=== PATIENT | female | born 1970 | race Caucasian/White ===

== ENCOUNTER 2016-10-07 18:50 | Emergency (ER) | payer BC ==
[2016-10-07 19:49] VITALS: BP 121/73
[2016-10-07] MEDS ORDERED: Lidocaine 2% PF * 5 ML VIAL INJ ONE (21:55)
--- NOTE | 2016-10-07 21:55 | UC ---
Laceration HPI - HPI Summary HPI Summary: complaint of laceration on right hand was washing dishes and suffered laceration lots of bleeding and then was controlled hasn't taken anything for pain - History Of Current Complaint Chief Complaint: UCLaceration Stated Complaint: HAND LACERATION Time Seen by Provider: 10/07/16 21:49 Hx Obtained From: Patient Laceration Location: Hand - Allergies/Home Medications Allergies/Adverse Reactions: Allergies Allergy/AdvReac Type Severity Reaction Status Date / Time No Known Allergies Allergy Verified 10/07/16 19:49 Home Medications: Home Medications NK [No Home Medications Reported] 10/07/16 [History Confirmed 10/07/16] PMH/Surg Hx/FS Hx/Imm Hx Previously Healthy: Yes - Surgical History Surgical History: None - Family History Known Family History: Negative: Cardiac Disease, Hypertension, Diabetes - Social History Occupation: Employed Full-time Lives: With Family Alcohol Use: Occasionally Substance Use Type: None Smoking Status (MU): Never Smoked Tobacco Review of Systems Constitutional: Negative Skin: Other - laceration Eyes: Negative ENT: Negative Respiratory: Negative Cardiovascular: Negative Gastrointestinal: Negative Genitourinary: Negative Motor: Negative Neurovascular: Negative Musculoskeletal: Negative Neurological: Negative Psychological: Negative All Other Systems Reviewed And Are Negative: Yes Physical Exam Triage Information Reviewed: Yes Appearance: No Pain Distress, Well-Nourished Vital Signs: Initial Vital Signs Temp 99.6 F 10/07/16 19:46 Pulse 91 10/07/16 19:46 Resp 16 10/07/16 19:46 BP 121/73 10/07/16 19:46 Vital Signs Reviewed: Yes Eyes: Positive: Conjunctiva Clear ENT: Positive: Pharynx normal, TMs normal Neck: Positive: No Lymphadenopathy Respiratory: Positive: Lungs clear, Normal breath sounds, No respiratory distress, No accessory muscle use Cardiovascular: Positive: RRR, No Murmur, Pulses Normal Bowel Sounds: Positive: Present Musculoskeletal Exam: Normal Neurological Exam: Normal Psychological Exam: Normal Skin Exam: Other - rignht hand laceration Laceration Repair - Laceration Repair 1 Description: Linear Laceration Size After Repair: Length (cm) - 3, Width (mm) - 3, Depth (mm) - 2 Modified For Repair: No Anesthesia Used: 2.0% Lido Cleansing Completed Via Routine Prep: Yes Irrigation With Pressure Irrigation Device: Yes Closure Material: Sutures Closure Method: Single Layer Suture Of: Skin Suture Type: Nylon - 6 sutures Laceration Course/Dx - Differential Dx - Laceration/Wound Differental Diagnoses: Laceration Provider Diagnoses: simple laceration Discharge - Discharge Plan Condition: Stable Disposition: HOME Patient Education Materials: Laceration (ED), Care For Your Stitches (ED) Referrals: Rene Mcgill MD [Primary Care Provider] - Additional Instructions: LACERATION What is a Laceration? Laceration is the medical name for a cut. Lacerations may be large or small. Some lacerations need stitches (also called sutures) to close them so they will heal well. Stitches usually need to be placed within 6 hours of injury. There are times when a wound may be determined to be too old for stitches. Stitches are removed when the wound is strong enough to stay closed, which is usually in 10-12 days, depending on where the wound or cut is located. Some stitches dissolve by themselves and do not need to be removed. If you have been given a numbing medicine, there will be some pain when it wears off. The pain from the wound should begin to decrease within one day. Treatment Recommendations: Keep the wound clean and dry for at least the next two (2) days. Keep the dressing clean if at all possible. If you must work in surroundings that will dirty the wound or dressing, wear a protective covering such as a glove. If the wound does get dirty, clean it as soon as you can with mild soap and water using a patting action. Do not rub or scrub vigorously. Then pat it dry completely. If a dressing was placed on the wound, you should put a clean one on at least daily and whenever you clean the wound. You can apply antibiotic ointment such as Bacitracin ointment to the wound each time you change the dressing. Avoid using the injured part as much as possible. If the wound is near a joint , try not to bend the joint too much. Elevate the injured part above your heart whenever possible to relieve throbbing. If you had stitches put in, you should see your healthcare provider in 1 to 2 days to have the wound checked for any signs or symptoms of infection. Some stitches will dissolve by themselves. Others will need to be removed. Make an appointment with your healthcare provider to have the stitches removed on the date instructed. An antibiotic medicine may be prescribed. The medicine should be taken until it is completely gone, even if you are feeling better. If you stop taking the medicine early, the infection may not be completely gone, and the medicine may not work the next time. Call Your Doctor or Return Here IF: Your wound becomes red, warm, swollen or more painful. There are red streaks coming from the wound. You develop a fever or shaking chills. Pus or bad smelling fluid comes out of the wound. You have any other symptoms that worry you.
== END 2016-10-07 22:39 | disposition home or self-care (01) ==
LOC: UCEAST 18:50
DX: S61.411A Laceration without foreign body of right hand, initial encounter (principal); W45.8XXA Other foreign body or object entering through skin, initial encounter; Y93.G1 Activity, food preparation and clean up; Y92.000 Kitchen of unspecified non-institutional (private) residence as the place of occurrence of the external cause; Y99.9 Unspecified external cause status
CPT/HCPCS: 12001; 12002; 99211; G0463

== ENCOUNTER 2016-10-17 08:28 | Emergency (ER) | payer BC ==
[2016-10-17] MEDS ORDERED: BENZOIN COMPOUND TOPICAL ONE (08:34)
[2016-10-17] MEDS ORDERED: Benzoin Compound STICK ONE (08:37)
[2016-10-17] MEDS ORDERED: Benzoin Compound STICK TOPICAL ONE (08:40)
--- NOTE | 2016-10-17 08:40 | UC ---
HPI Wound/Suture Re-check - HPI Summary HPI Summary: right mcp joint suture removal. 5 prolene sitiches placed are to be removed today healing well begining to feel itchy - History Of Current Complaint Hx Obtained From: Patient Onset/Duration: Sudden Onset, Lasting Days - 10, Resolved Severity: Mild <Colleen Rodriguez - Last Filed: 10/17/16 09:10> <Cassie Zamarripa - Last Filed: 10/17/16 09:23> - History Of Current Complaint Chief Complaint: UCLaceration Stated Complaint: SUTURE REMOVAL Time Seen by Provider: 10/17/16 08:32 - Allergies/Home Medications Allergies/Adverse Reactions: Allergies Allergy/AdvReac Type Severity Reaction Status Date / Time No Known Allergies Allergy Verified 10/17/16 08:39 PMH/Surg Hx/FS Hx/Imm Hx Previously Healthy: Yes - Surgical History Surgical History: None - Family History Known Family History: Negative: Cardiac Disease, Hypertension, Diabetes - Social History Occupation: Employed Full-time Lives: With Family Alcohol Use: Occasionally Substance Use Type: None Smoking Status (MU): Never Smoked Tobacco <Colleen Rodriguez - Last Filed: 10/17/16 09:10> Review of Systems Constitutional: Negative Skin: Other - healing well approximated wound right 2nd mcp joint Eyes: Negative ENT: Negative Respiratory: Negative Cardiovascular: Negative Gastrointestinal: Negative Genitourinary: Negative Motor: Negative Neurovascular: Negative Musculoskeletal: Negative Neurological: Negative Psychological: Negative All Other Systems Reviewed And Are Negative: Yes <Colleen Rodriguez - Last Filed: 10/17/16 09:10> Physical Exam Triage Information Reviewed: Yes Appearance: Well-Appearing, No Pain Distress, Well-Nourished Vital Signs Reviewed: Yes Eye Exam: Normal Eyes: Positive: Conjunctiva Clear ENT Exam: Normal ENT: Positive: Normal ENT inspection, Hearing grossly normal. Negative: Nasal congestion, Nasal drainage, Trismus, Muffled/hoarse voice Dental Exam: Normal Neck exam: Normal Neck: Positive: Supple, Nontender, No Lymphadenopathy Respiratory Exam: Normal Respiratory: Positive: Chest non-tender, Lungs clear, Normal breath sounds, No respiratory distress, No accessory muscle use Cardiovascular Exam: Normal Cardiovascular: Positive: RRR, No Murmur, Pulses Normal, Brisk Capillary Refill Abdominal Exam: Normal Musculoskeletal Exam: Normal Musculoskeletal: Positive: Strength Intact, ROM Intact, No Edema Neurological Exam: Normal Neurological: Positive: Alert, Muscle Tone Normal Psychological Exam: Normal Skin Exam: Normal Skin: Positive: Other - well healed wound mcp joint <Colleen Rodriguez - Last Filed: 10/17/16 09:10> Vital Signs: Initial Vital Signs Temp 98.1 F 10/17/16 08:37 Pulse 82 10/17/16 08:37 Resp 16 10/17/16 08:37 BP 95/69 10/17/16 08:37 Pulse Ox 99 10/17/16 08:37 <Cassie Zamarripa - Last Filed: 10/17/16 09:23> Re-Evaluation - Re-Evaluation First Eval Change: Improved - sutures removed patient tolerated welll steri strips applied <Colleen Rodriguez - Last Filed: 10/17/16 09:10> Course/Dx - Course Course Of Treatment: routine steri care, follow with pcp prn - Differential Dx - Laceration/Wound Differential Diagnoses: Healing Wound, Suture Removal Provider Diagnoses: suture removal healing wound right index mcp joint <Colleen Rodriguez - Last Filed: 10/17/16 09:10> Discharge <Colleen Rodriguez - Last Filed: 10/17/16 09:10> <Cassie Zamarripa - Last Filed: 10/17/16 09:23> - Discharge Plan Condition: Stable Disposition: HOME Patient Education Materials: Stitches Removal (ED), Steristrips (ED) Referrals: Rene Mcgill MD [Primary Care Provider] - If Needed Attestation Statement User Type: Provider - I was available for consult. This patient was seen by the GREGORY. The patient was not presented to, seen by, or examined by me. -Canelo <Cassie Zamarripa - Last Filed: 10/17/16 09:23>
[2016-10-17 08:42] VITALS: BP 95/69
== END 2016-10-17 08:48 | disposition home or self-care (01) ==
LOC: UCEAST 08:28
DX: Z48.02 Encounter for removal of sutures (principal)
CPT/HCPCS: 99211; G0463

== ENCOUNTER 2016-11-02 02:32 | Day surgery (SDC) | payer BC ==
[2016-11-02] MEDS ORDERED: Ondansetron INJ* 2 MG/ML VIAL ONE ×3 (03:29→14:29)
[2016-11-02] MEDS ORDERED: Morphine INJ* 4 MG/ML 1 ML SYRINGE ONE ×2 (03:29→12:26)
[2016-11-02] MEDS ORDERED: Ondansetron INJ* 2 MG/ML VIAL IV ONE ×2 (04:19→12:15)
[2016-11-02 04:33] LABS: Hematocrit 37 % (35-47); Hemoglobin 11.6 g/dl (12.0-16.0); Mean Corpuscular HGB Conc 32 g/dl (31-36); Mean Corpuscular Hemoglobin 25 pg (27-31); Mean Corpuscular Volume 79 fL (80-97); Mean Platelet Volume 8 um3 (7.4-10.4); Red Blood Count 4.65 10^6/ul (4.0-5.4); Red Cell Distribution Width 15 % (10.5-15); White Blood Count 9.3 10^3/ul (3.5-10.8)
[2016-11-02 04:35] LABS: ALT 12 U/L (7-52); AST 14 U/L (13-39); Albumin 4.1 g/dL (3.2-5.2); Alkaline Phosphatase 81 U/L (34-104); Anion Gap 10 mmol/L (2-11); BUN/Creatinine Ratio 10.6 (8-20); Blood Urea Nitrogen 7 mg/dL (6-24); CO2 Carbon Dioxide 21 mmol/L (22-32); Calcium 9.8 mg/dL (8.6-10.3); Chloride 105 mmol/L (101-111); EGFR Non-African American 96.4 (>60); Globulin 2.8 g/dL (2-4); Glucose 112 mg/dL (70-100); Potassium 3.5 mmol/L (3.5-5.0); Sodium 136 mmol/L (133-145); Total Protein 6.9 g/dL (6.4-8.9)
[2016-11-02 04:38] LABS: Urine Bacteria 1+ (Absent); Urine Bilirubin Negative (Negative); Urine Glucose Negative (Negative); Urine Nitrite Negative (Negative)
[2016-11-02] MEDS ORDERED: Iohexol 300* (CONTRAST) 10 ML SDV IV ONE (05:01)
[2016-11-02] MEDS ORDERED: Morphine INJ* 2 MG/ML 1 ML SYRINGE IV ONE ×2 (05:25→11:47)
[2016-11-02] MEDS ORDERED: Pantoprazole IV* 40 MG IV ONE (06:42)
--- NOTE | 2016-11-02 06:51 | ED ---
Jessica Mcclain Rebecca, scribed for Travis Belluel on 11/02/16 at 0428 . Abdominal Pain/Female - HPI Summary HPI Summary: Pt is a 46 y/o F who presents to ED c/o abd pain. Pain began 2 days ago and has been worsening since onset. Pain is in the epigastric region without radiation and is currently moderate. Additionally c/o vomiting, constipation and L-sided CRAWFORD characterized as migraine. Denies diarrhea. Sx aggravated and alleviated by nothing. - History of Current Complaint Time Seen by Provider: 11/02/16 04:19 Hx Obtained From: Patient Hx Last Menstrual Period: 10/07/16 Onset/Duration: Lasting Days - 2 days, Still Present Timing: Constant Severity Currently: Moderate Location: Epigastric Radiates: No Aggravating Factor(s): Nothing Alleviating Factor(s): Nothing Associated Signs and Symptoms: Positive: Constipation, Vomiting, Other: - L- sided CRAWFORD. Negative: Diarrhea Allergies/Adverse Reactions: Allergies Allergy/AdvReac Type Severity Reaction Status Date / Time No Known Allergies Allergy Verified 10/17/16 08:39 PMH/Surg Hx/FS Hx/Imm Hx Endocrine/Hematology History: Denies: Hx Diabetes Cardiovascular History: Denies: Hx Atrial Fibrillation, Hx Congestive Heart Failure, Hx Coronary Artery Disease - Cancer History Hx Chemotherapy: No Hx Radiation Therapy: No Infectious Disease History: Denies: Traveled Outside the [place] in Last 30 Days - Family History Known Family History: Negative: Cardiac Disease, Hypertension, Diabetes - Social History Alcohol Use: Occasionally Substance Use Type: Reports: None Smoking Status (MU): Never Smoked Tobacco Review of Systems Positive: Abdominal Pain, Vomiting, Other - constipation. Negative: Diarrhea Positive: Headache - L-sided migraine CRAWFORD All Other Systems Reviewed And Are Negative: Yes Physical Exam Triage Information Reviewed: Yes Vital Signs Reviewed: Yes Appearance: Positive: Well-Appearing, No Pain Distress Skin: Positive: Warm, Skin Color Reflects Adequate Perfusion, Dry Head/Face: Positive: Normal Head/Face Inspection Eyes: Positive: EOMI, ROSEMARY ENT: Positive: Normal ENT inspection Neck: Positive: Supple, Nontender Respiratory/Lung Sounds: Positive: Clear to Auscultation, Breath Sounds Present Cardiovascular: Positive: RRR, Pulses are Symmetrical in both Upper and Lower Extremities Abdomen Description: Positive: Soft, Other: - Tenderness in epigastrum and RUQ Bowel Sounds: Positive: Present Musculoskeletal: Positive: Normal, Strength/ROM Intact Neurological: Positive: Normal, Sensory/Motor Intact, Alert, Oriented to Person Place, Time Diagnostics - Laboratory Result Diagrams: 11/02/16 03:00 11/02/16 03:00 Lab Statement: Any lab studies that have been ordered have been reviewed, and results considered in the medical decision making process. - Radiology CXR Xray Interpretation: No Acute Changes Radiology Interpretation Completed By: ED Physician - CT CT Abd/Pel CT Interpretation: No Acute Changes - No definite acute pathology. Slightly heterogeneous liver can be correlated with LFTs. Questionable tiny right hepatic love hemangioma. Tiny involuting right ovarian follicle with trace free fluid. CT Interpretation Completed By: Radiologist - EKG 0258 Cardiac Rate: NL - 90 bpm EKG Rhythm: Sinus Rhythm EKG Interpretation: No acute changes Re-Evaluation - Re-Evaluation First Eval Re-Evaluation Time: 06:41 Change: Unchanged Comment: Discussed lab and CT results. She continues to be tender. An US will be ordered. Abdominal Pain Fem Course/Dx - Course Course Of Treatment: Pt is a 46 y/o F who presents to ED c/o moderate epigastric pain for 2 days, worsening since onset. Additionally c/o vomiting, constipation and L-sided CRAWFORD characterized as migraine. Denies diarrhea. EKG and CXR reveal no acute findings. CT Abd/Pel reveals no definite acute pathology. Troponin of 0.00. Pt will be signed out, pending dispo, awaiting US. - Diagnoses Provider Diagnoses: Abdominal pain Discharge - Discharge Plan Condition: Stable Disposition: OTHER Discharge Disposition Comment: Signed out to Dr. Molina, pending dispo, awaiting US The documentation as recorded by the Jessica mcmahan Rebecca accurately reflects the service I personally performed and the decisions made by , Francois Bell.
[2016-11-02 07:38] LABS: Lipase 40 U/L (11.0-82.0)
--- NOTE | 2016-11-02 08:05 | RAD ---
INDICATION: Chest pain COMPARISON: Chest x-ray July 18, 2007 TECHNIQUE: PA and lateral dual-energy views were obtained. FINDINGS: Bones/Soft Tissues: There are no acute bony findings. Cardiomediastinal: The cardiomediastinal silhouette is normal. Lungs: There are no infiltrates. Pleura: There are no pleural effusions. Other: None IMPRESSION: NORMAL CHEST.
[2016-11-02] MEDS ORDERED: Morphine INJ* 4 MG/ML 1 ML SYRINGE IV ONE ×2 (08:46→12:14)
--- NOTE | 2016-11-02 08:57 | RAD ---
Indication: Right upper quadrant pain. Real-time sonography of the right upper quadrant was performed. Liver is normal in size measuring 14 cm in length. It is diffusely increased in echogenicity consistent with hepatic steatosis. The gallbladder demonstrates calcified gallstones with posterior acoustic shadowing. No pericholecystic fluid or wall thickening is identified. Common duct measures 4 mm. The right kidney measures 9.4 x 4.6 x 5.0 cm with no hydronephrosis. The pancreatic head, neck and proximal body demonstrates no mass or pancreatic duct dilatation. Aorta and inferior vena cava are unremarkable. IMPRESSION: Cholelithiasis without evidence of biliary duct dilatation. Likely hepatic steatosis.
[2016-11-02] MEDS ORDERED: NS 0.9% 1000 ML*IV.FLUID IV ONE (09:15)
--- NOTE | 2016-11-02 10:15 | RAD ---
Indication: Abdominal pain. Contrast: Administered 99.7 ml of OMNIPAQUE 300 mgi/ml CT of the abdomen and pelvis was performed after oral and IV contrast administration. Coronal and sagittal reconstructed images were obtained. Lung bases demonstrate no pleural fluid, nodules or masses. Heart is of normal size without evidence of pericardial effusion. The liver is normal in size. There is a low density lesion in the posterior segment of the right lobe of the liver measuring approximately 8 mm. This is too small to characterize. This may represent a small hemangioma. The liver is heterogeneous. Parenchymal liver disease is not excluded. The gallbladder demonstrates no calcified gallstones. No pericholecystic fluid or wall thickening is noted. The common duct is not dilated. The pancreas demonstrates no mass or pancreatic duct dilatation. The spleen is normal in size. No adrenal lesions are noted. The kidneys demonstrate symmetric nephrograms. No focal masses are noted. No retroperitoneal lymphadenopathy is noted. CT of the pelvis demonstrates no retroperitoneal or pelvic lymphadenopathy. The uterus is grossly unremarkable. Small follicles are noted in the right ovary. No free fluid is identified. The urinary bladder is unremarkable. No hernias are noted. IMPRESSION: Low density lesion in the right lobe of the liver measuring 7 mm. Heterogeneous liver. No other masses or fluid collections are identified.
[2016-11-02] MEDS ORDERED: NS 0.9% 1000 ML* 1,000 ML IV ONE (11:49)
--- NOTE | 2016-11-02 12:10 | HP ---
CC: Dr. Rene Mcgill DATE OF ADMISSION/DATE OF DICTATION: 11/02/2016. CHIEF COMPLAINT: Abdominal pain. HISTORY OF PRESENT ILLNESS: The patient is a 46-year-old female who presents with about a day of ab dominal pain, although by history she has had similar attacks whenever she eats a heavy meal for the last week or two. It is always up under the ribs, worse on the right than on the left, not really going into the back. She is kind of queasy, not really eating well, but has not really had vomiting . She has had occasional loose stools. She has not had change in color of the stool or urine. She has not had fever or chills. She has not had an accident, injury or trauma. PAST MEDICAL HISTORY: Benign. No chronic medical illnesses. PAST SURGICAL HISTORY: Her only prior surgeries include a section many years go and a righ t hand laceration, relatively recently. MEDICATIONS: She denies regular medications. ALLERGIES: She denies medical allergies. FAMILY HISTORY: Her mother had her gallbladder out at a young age. There are no bleeding tendencie s or anesthesia reactions in the family. 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 She is here wi th her son today. REVIEW OF SYSTEMS: Relatively benign. No chest pain, heart pain, angina or any cardiac disease. N o emphysema, bronchitis or chronic lung disease. No previous hepatobiliary disease. No diabetes, t hyroid or other endocrine. No history of GI disease. No history of kidney stones. She has had an occasional bladder infection in the past. No colitis, irritable bowel, Crohn's, or anything of the sort. No neuromuscular or psych issues. PHYSICAL EXAMINATION GENERAL: She is a well-developed, well-nourished, overweight-appearing female consistent with state d age. SKIN: Warm and well-perfused. She is no diaphoretic. She is not jaundiced. VITAL SIGNS: Temperature 98.1, pulse 73 and regular, respirations 15 and unlabored, blood pressure 97/67, O2 saturation 95 percent. NECK: Supple without any adenopathy. LUNGS: Clear bilaterally. HEART: Regular with no abnormal sounds. ABDOMEN: Obese, soft and tender in the subcostal region, most prominently in the right subcostal re gion with positive Queen sign. No hernias, no masses, bowel sounds are normal. EXTREMITIES: Well-perfused and without edema. Her primary care physician is Dr. Mcgill. She keeps up-to-date with her mammograms and so forth thr ough him. LABORATORY DATA: Normal white blood count, hemoglobin 11.6, MCV 79, this seems to be her normal st ate. Electrolytes are normal, renal function normal, HCG is negative, liver chemistries are normal. Urinalysis is essentially normal. She has had a CT scan of the abdomen which shows no acute changes. Chest x-ray and EKG are normal. Gallbladder ultrasound shows cholelithiasis without acute changes. IMPRESSION: Pawtp-sub-gpci-old female with a flare up of biliary colic over the last week or two, n ow with an acute exacerbation that is not responding to narcotic pain medication. PLAN: I discussed the options with her and we decided to go ahead with laparoscopic cholecystectomy . She understands the procedure, the rationale, the risks, the expected recovery, and the alternati ves to surgeries. We have gone over all these issues and she would like to proceed with laparoscopi c cholecystectomy and will do so today as the operative schedule permits. [id number]/[facility] #: [id number]
[2016-11-02] MEDS ORDERED: ceFAZolin 2 GM PREMIX(*) 2 GM/50 ML BAG IVPB ONE (12:27)
[2016-11-02] MEDS ORDERED: Bupivacaine 0.25% W/EPI* 50 ML VIAL ONE (12:59)
[2016-11-02] MEDS ORDERED: Buffered Lidocaine 0.9% SYRIN* 5 ML/SYR SYRINGE INTRADERM ONE (13:35)
[2016-11-02] MEDS ORDERED: Dexamethasone IV* 4 MG/ML 1 ML (4 MG) IV SLOW PU ONE (13:35)
[2016-11-02] MEDS ORDERED: Lidocaine 2% PF * 5 ML VIAL ONE (14:29)
[2016-11-02] MEDS ORDERED: Atracurium* 10 MG/ML 10 ML VIAL ONE (14:29)
[2016-11-02] MEDS ORDERED: Ketorolac INJ* 30 MG/ML 1 ML VIAL ONE (14:29)
[2016-11-02] MEDS ORDERED: Midazolam* 1 MG/ML 5 ML VIAL (5 MG) ONE (14:29)
[2016-11-02] MEDS ORDERED: fentaNYL* 50 MCG/ML 5 ML VIAL (250 MCG VIAL) ONE (14:29)
[2016-11-02] MEDS ORDERED: Propofol* 10 MG/ML 20 ML BTL IV PUSH ONE (14:29)
[2016-11-02] MEDS ORDERED: Ondansetron INJ* 2 MG/ML VIAL IV PRN (14:59)
[2016-11-02] MEDS ORDERED: fentaNYL* 50 MCG/ML 2 ML VIAL (100 MCG VIAL) IV PRN (14:59)
[2016-11-02] MEDS ORDERED: oxyCODONE/Acetamin 5/325 MG* TAB PO PRN (14:59)
[2016-11-02] MEDS ORDERED: DiMENhydriNATE IV* 50 MG/ML VIAL IV PUSH PRN (14:59)
[2016-11-02] MEDS ORDERED: HYDROmorphone* 1 MG/ML 1 ML SYR IV PRN (14:59)
[2016-11-02] MEDS ORDERED: Dexamethasone IV* 4 MG/ML 1 ML (4 MG) ONE (15:01)
[2016-11-02] MEDS ORDERED: Phenylephrine IV* 40 MCG/ML 10 ML SYRINGE ONE (15:28)
[2016-11-02] MEDS ORDERED: Glycopyrrolate IV* 0.2 MG/ML 1 ML VIAL ONE (15:42)
[2016-11-02 18:01] VITALS: BP 114/78
--- NOTE | 2016-11-03 08:52 | ED ---
Trinity Mcclain Alfonso, scribed for Saroj Molina MD on 11/02/16 at 0754 . Progress - Progress Note Progress Note: Patient reevaluated at 0749 This patient is a 46 year old F presenting to [facility] accompanied by with a chief complaint of abdominal pain since two days ago. Patient is still in pain. Pt rates the pain 7/10 in severity. Symptoms aggravated and alleviated by nothing. PE Findings VITAL SIGNS: Reviewed. GENERAL: Patient is a well-developed and nourished female who is lying comfortable in the stretcher. Patient is not in any acute respiratory distress. HEAD AND FACE: Normocephalic and atraumatic. EYES: PERRLA, EOMI x 2, No injected conjunctiva. EARS: Hearing grossly intact. Ear canals and tympanic membranes are WNL. MOUTH: Oropharynx within normal limits. NECK: Supple, trachea is midline, no adenopathy, no JVD. CHEST: Symmetric, no tenderness at palpation LUNGS: Clear to auscultation bilaterally. No wheezing or crackles. CVS: RRR, S1 and S2 present, no murmurs or gallops appreciated. ABDOMEN: Soft. Epigastric and RUQ tenderness. No signs of distention. Positive bowel sounds. No rebound no guarding, and no masses palpated. No abdominal bruit or pulsations. EXTREMITIES: FROM in all major joints, no edema, no cyanosis or clubbing. NEURO: Alert and oriented x 3. No acute neurological deficits. Speech is normal. SKIN: Dry and warm Consulted Dr. Clarke at 0901 who states he will see this patient in the ED. Assessment and Plan : This patient was signed out by Dr. Bell to follow up an US he ordered. In my physical exam the patient continued to have RUQ and epigastric tenderness. Patient was given 4mg morphine for the pain. The patient became slightly hypotensive therefore was given IV fluids. Now the patient is normotensive. The abdomen US reveals, per radiologist, Cholelithiasis without evidence of biliary duct dilatation. At this time I discussed the case Dr. Clarke who accepted the patient for admission and possible Cholecystectomy. At time of admission patient is hemodynamically stable and A&Ox3. - Results/Orders Results/Orders: Abdomen US reveals, per radiologist, Cholelithiasis without evidence of biliary duct dilatation. Re-Evaluation - Re-Evaluation First Eval Re-Evaluation Time: 07:49 Comment: This patient is a 46 year old F presenting to [facility] accompanied by with a chief complaint of abdominal pain since two days ago. Patient is still in pain. Pt rates the pain 7/10 in severity. Symptoms aggravated and alleviated by nothing. Course/Dx - Course Course Of Treatment: Pt is a 46 y/o F who presents to ED c/o moderate epigastric pain for 2 days, worsening since onset. Additionally c/o vomiting, constipation and L-sided CRAWFORD characterized as migraine. Denies diarrhea. EKG and CXR reveal no acute findings. CT Abd/Pel reveals no definite acute pathology. Troponin of 0.00. Pt will be signed out, pending dispo, awaiting US. I discussed all the findings and test results with the patient and patients parents. They were instructed to return to the emergency room immediately if any of the symptoms return or worsens. They were explained the possibility of an early abdominal pathology such as appendicitis which was not detected at this time despite the physical exam and testing. Abdominal exam before discharge: Soft,NT. No signs of distention. BS present. No rebound no guarding, and no masses palpated. Patient is alert and oriented and hemodynamically stable. Patient is to follow up with primary care physician in the next 24 hours. Patient and patients parents agree and understands. - Diagnoses Provider Diagnoses: Abdominal pain - Provider Notifications Discussed Care Of Patient With: Jerry Clarke Time Discussed With Above Provider: 09:01 Instructed by Provider To: Other - Consulted Dr. Clarke who states he will see this patient in the ED. The documentation as recorded by the Trinity mcmahan Alfonso accurately reflects the service I personally performed and the decisions made by me, Saroj Molina MD.
--- NOTE | 2016-11-03 12:21 | OP ---
CC: Dr. Jerry Clarke; Dr. Demond Mcgill OPERATIVE REPORT: DATE OF OPERATION: 11/02/16 DATE OF : 70 SURGEON: Jerry Clarke MD CASING SEWER: Toby ANESTHESIOLOGIST: Dr. Estevez. ANESTHESIA: General anesthetic, local infiltration. PRE-OP DIAGNOSIS: Cholecystitis. POST-OP DIAGNOSIS: Cholecystitis. OPERATIVE PROCEDURE: Laparoscopic cholecystectomy. DESCRIPTION OF PROCEDURE: The patient was supine on the operating table. After adequate general an esthetic, compression stockings, Rahel Hugger warmer, and intravenous antibiotics, the abdomen was pr epped with antiseptic, draped in a sterile fashion. Local infiltrative anesthesia was administered. Small right upper quadrant incision was created and a Visiport cannula was used to enter the perit kim space. Insufflation was carried out with carbon dioxide. There was no evidence of underlying injury. Additional cannulae, 5 mm supraumbilical and right anterior axillary line and 12 mm subxip hoid, were placed through a small stab wounds under direct vision. The gallbladder had some evidenc e of acute inflammation and a little bit of edema. The cystic duct and cystic artery were readily i dentified, isolated, clipped, and divided. Gallbladder was taken off the liver bed without difficul ty. The plane was a little sticky and little edematous but not too bad. The gallbladder was remove d through the subxiphoid port without difficulty. There was a little bit of bile spilled but no sto ne pillage. Operative field was irrigated with warm saline solution. Free fluid was suctioned out. Hemostasis was good. The cannulae were removed. Pneumoperitoneum allowed to escape. Fascia of th e larger incision was closed with 0 Polysorb, skin with 5-0 Polysorb followed by Steri-Strips. She tolerated the procedure well, was awakened, and brought to Recovery in good condition. No complicat ions. No drains. Pathologic specimen gallbladder. Sponge and instrument counts are correct. Estima deven blood loss is 30 mL. [id number] #: [id number]
== END 2016-11-02 18:17 | disposition home or self-care (01) ==
LOC: ED 02:32 → OR 12:26
PROVIDERS: ATTEND Surgery
DX: K80.12 Calculus of gallbladder with acute and chronic cholecystitis without obstruction (principal); R11.10 Vomiting, unspecified; R10.11 Right upper quadrant pain; F17.210 Nicotine dependence, cigarettes, uncomplicated
CPT/HCPCS: 36415; 71020; 74177; 76705; 80053; 81003; 81015; 83690; 84484; 84702; 85025; 85610; 85730; 87086; 88304; 93005; 96374; 96375; 99283; J0690; J1100; J1885; J2250; J2270; J2405; J2704; J3010; Q9967